=== PATIENT | female | born 1975 | race Caucasian/White ===

== ENCOUNTER 2016-12-06 05:53 | Emergency (ER) | payer OTHER ==
--- NOTE | ~2016-12-06 | CR58 ---
[facility] A Service of [facility] & [facility] RADIOLOGY TEXT RESULTS PATIENT: STERLING BLANKENSHIP LOCATION: [facility] : [birth year] UNIT #: [id number] AGE: [address]: Raymon Whitehead MD SEX: F ORDER DR: [id number] [facility]. [place], [place] [address] [id number] MR#: [id number] Acc #: [id number] NAME: STERLING BLANKENSHIP : 1975 SEX: F STUDY DATE/TIME: 12/06/2016 6:38 UNIT: [facility] ROOM: STUDY DESCRIPTION: CR Cervical Spine 2 or 3 Views Attending Physician: Raymon Whitehead M.D. Ordering Physician: Raymon Whitehead M.D. Primary Care Physician: No Primary Care Physician MEDICAL IMAGING REPORT This report is preliminary unless electronic signature is present EXAM Cervical spine, 4 views COMPARISON None. INDICATION 41-year-old female with neck pain after lifting injury 2 days ago. FINDINGS Evaluation of the cervical spine on the swimmer's views is limited by nonstandard positioning. The cervical spine is anatomically aligned. There is no evidence of acute fracture or significant degenerative change. IMPRESSION Radiographic evaluation of the cervical spine is within normal limits. Dictated by... Gunner Cunningham M.D. THIS IS AN ELECTRONICALLY VERIFIED REPORT Gunner Cunningham M.D. at 12/13/2016 2:01 PM GRACE/glenis TD: 12/06/2016 11:08 JOB #: [id number] MEDICAL IMAGING REPORT Page 1 of 1 COPY
--- NOTE | ~2016-12-06 | CR181 ---
[facility] A Service of [facility] RADIOLOGY TEXT RESULTS PATIENT: STERLING BLANKENSHIP LOCATION: [facility] : 79 UNIT #: [id number] AGE: [address]: Raymon Whitehead MD SEX: F ORDER DR: [id number] [address] [place], [place] [address] [id number] MR#: [id number] Acc #: [id number] NAME: STERLING BLANKENSHIP : 1975 SEX: F STUDY DATE/TIME: 12/06/2016 6:36 UNIT: [facility] ROOM: STUDY DESCRIPTION: CR Lumbar Spine 2 or 3 Views Attending Physician: Raymon Whitehead M.D. Ordering Physician: Raymon Whitehead M.D. Primary Care Physician: Primary Care Physician No MEDICAL IMAGING REPORT This report is preliminary unless electronic signature is present EXAM Lumbar spine, 3 views COMPARISON None INDICATION 41-year-old female with low back pain after lifting injury 2 days ago. FINDINGS There is straightening of normal lordosis of the lumbar spine. Evaluation of the bones is limited by under-penetration. No evidence of acute fracture. Degenerative facet hypertrophy is suspected on the left at L4-L5. No spondylolisthesis. IMPRESSION 1. Limited evaluation of the bones due to under-penetration. 2. No evidence of acute fracture or subluxation of the lumbar spine. Not mentioned specifically in the body of the report there may be mild disc height loss at L5-S1. Degenerative facet hypertrophy is also suspected of the left at L4-L5. Dictated by... Gunner Cunningham M.D. THIS IS AN ELECTRONICALLY VERIFIED REPORT Gunner Cunningham M.D. at 12/13/2016 1:51 PM Lee TD: 12/06/2016 10:42 JOB #: [id number] MEDICAL IMAGING REPORT [facility] A Service of [facility] RADIOLOGY TEXT RESULTS PATIENT: STERLING BLANKENSHIP LOCATION: [place] : 79 UNIT #: [id number] AGE: [address]: Raymon Whitehead MD SEX: F ORDER DR: Page 1 of 1 COPY
== END 2016-12-06 08:00 | disposition home or self-care (01) ==
LOC: CED 05:53
DX: M54.41 Lumbago with sciatica, right side (principal); F17.210 Nicotine dependence, cigarettes, uncomplicated; X50.9XXA Other and unspecified overexertion or strenuous movements or postures, initial encounter; Y93.89 Activity, other specified; Y92.69 Other specified industrial and construction area as the place of occurrence of the external cause
CPT/HCPCS: 72040; 72100; 96372; 99284; J1885